=== PATIENT | male | born 2000 ===

== ENCOUNTER → 2023-08-14 11:06 | Outpatient (CLI) | payer OTHER, SELFPAY ==
--- NOTE | 2023-08-14 | DI.MRI.S_ITS ---
PROCEDURE: MR LUMBAR SPINE WO CON INDICATIONS: Dorsalgia TECHNIQUE: Noncontrast sagittal T1 spin echo and T2 fast echo, sagittal STIR, and T2 fast spin echo through the lumbar spine. In cases with scoliosis, additional coronal T2 fast spin echo may be performed. COMPARISON: [facility] Outside Film, CR, XR LUMBAR SPINE 2 OR 3 VIEWS, 07/09/2023, 9:12. FINDINGS: Image quality: Excellent. Alignment and Curvature: There is normal bony alignment. Bone Marrow: Marrow is of normal overall signal. Low T1 signal involving the vertebral bodies imaged is consistent with the presence of red bone marrow period No acute vertebral body compression fractures. Spinal Cord: Conus medullaris terminates at the L1 level. Visualized cord demonstrates normal signal and size. Paraspinous Soft Tissues: No paravertebral masses. T12-L1: Normal appearance. L1-L2: Normal appearance. L2-L3: Normal appearance. L3-L4: Normal appearance. L4-L5: Mild facet hypertrophy. No canal stenosis or foraminal stenosis. L5-S1: Mild central posterior disc protrusion, with disc material abutting the bilateral S1 nerve roots in the lateral recesses. Mild canal stenosis. Mild facet hypertrophy. Moderate bilateral foraminal narrowing with mild flattening deformity on the exiting bilateral L5 nerve roots. IMPRESSION: 1. There is mild underlying lower lumbar facet arthropathy. 2. A mild central posterior disc protrusion at L5-S1 abuts the bilateral S1 nerve roots in the lateral recesses. It results in mild canal stenosis. There is also moderate bilateral foraminal narrowing at this level. Recommend correlation for presence or absence of L5 and/or S1 symptomatology. Dictated by: Marc Hollis M.D. on 08/14/2023 at 12:01 Approved by: Marc Hollis M.D. on 08/14/2023 at 12:05
== END ==
PROVIDERS: Referring Provider Physical Medicine & Rehabilitation; Visit Provider Physical Medicine & Rehabilitation
DX: M47.816 Spondylosis without myelopathy or radiculopathy, lumbar region (principal); M47.817 Spondylosis without myelopathy or radiculopathy, lumbosacral region; M48.07 Spinal stenosis, lumbosacral region; M51.27 Other intervertebral disc displacement, lumbosacral region; M54.9 Dorsalgia, unspecified
CPT/HCPCS: 72148